=== PATIENT | male | born 1980 | race Caucasian/White ===

== ENCOUNTER 2021-11-16 19:49 | Emergency (ER) | payer SELFPAY ==
[2021-11-16 19:51] VITALS: BP 121/72; PULSE 63; RESP 16; TEMP 36.7; O2SAT 96; BMI 29.7
--- NOTE | 2021-11-16 19:56 | ED_ITS ---
HPI - Extremity Problem General: Chief complaint: Extremity Injury, Lower Stated complaint: Left Ankle Injury Time Seen by Provider: 11/16/21 19:56 History of Present Illness: 41-year-old male comes in for injury to the left ankle. Patient was stepping out of his truck when he turned his left ankle. Patient has swelling and tenderness to the lateral malleus of the left ankle. No tenderness is noted to the foot or to the knee. Patient denies any prior injury to the ankle. Associated symptoms: Deny chest pain, fever(s) or rash Review of Systems General: Reports: 10 or more systems reviewed and unremarkable except in HPI and below Const: Denies: fever(s) Card: Denies: chest pain Resp: Denies: dyspnea Musc: Reports: joint pain Skin/Breast: Denies: rash Physical Exam Const: COMMON NORMALS: alert HENMT: COMMON NORMALS: atraumatic HEAD & SCALP: atraumatic Neck/C-Spine: COMMON NORMALS: full ROM Resp: COMMON NORMALS: normal respiratory effort Cardio: COMMON NORMALS: regular rate RATE: regular rate Extremity: LEFT LOWER EXTREMITY: Yes ankle joint (lateral maleolus swelling and tenderness) Left ankle: Yes inspection, Yes palpation and Yes ROM Neuro: SENSORIUM/ORIENTATION: Yes alert Skin: COMMON NORMALS: no rashes or lesions noted GENERAL SKIN EXAM: no ra shes or lesions noted Course Vital Signs: Vital signs: Vital Signs Temperature 98.0 F 11/16/21 19:51 Pulse Rate 63 11/16/21 19:51 Respiratory Rate 16 11/16/21 19:51 Blood Pressure 121/72 11/16/21 19:51 Pulse Oximetry 96 11/16/21 19:51 MDM - Extremity (Nontraumatic) Medical Decision Making 41-year-old male patient comes in today with injury to the left ankle. On exam patient has some swelling and tenderness to the lateral malleus of the left ankle. Pulses and sensation are intact distally. No obvious deformity is noted. Differential diagnosis includes fracture, sprain, contusion. X-ray noted no fracture or dislocation. Reviewed exam with patient with recommendations for treatment and follow-up. Patient and family both reported understanding. Lab Data Radiology Impressions Ankle X-Ray 11/16/21 19:58 IMPRESSION: Negative for fracture or dislocation Discharge Plan Discharge Patient Disposition: Home Clinical Impression: Ankle sprain Qualifiers: Encounter type: initial encounter Involved ligament of ankle: unspecified ligament Laterality: left Qualified Code(s): S93.402A - Sprain of unspecified ligament of left ankle, initial encounter Condition: Stable Discharge Orders: Discharge ED (Routine); Ordered 11/16/21 Ordered By: Saroj Vann Discharge Diet: Usual diet Discharge Activity: Increase activity as tolerated Patient Instructions: Ankle Sprain (ED) Activity Restrictions/Additional Instructions: Home and rest. Elevate and ice ankle for pain and discomfort. Use elastic bandage for comfort and swelling. Use crutches until he can bear weight comfortably. Most individuals will use crutches for 2 to 3 days and then start to notice improvement in symptoms and are able to bear weight. Sometimes pain may persist up to 1 week until he can bear weight. Follow-up with primary care for persistent symptoms. Return to ER for new concerns. 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
--- NOTE | 2021-11-16 19:58 | XRR_ITS ---
PROCEDURE INFORMATION: Exam: XR Left Ankle Exam date and time: 11/16/2021 8:10 PM Age: 41 years old Clinical indication: Pain; Ankle; Left; Additional info: Injury TECHNIQUE: Imaging protocol: XR Left ankle. Views: 3 or more views. COMPARISON: No relevant prior studies available. 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 Small calcified heel spur. Soft tissues: See Bones/joints finding. XR/XR ankle LT min 3V* [id number] IMPRESSION: Negative for fracture or dislocation
== END 2021-11-16 20:55 | disposition home or self-care (01) ==
PROVIDERS: Emergency Provider Nurse Practitioner Family
DX: S93.402A Sprain of unspecified ligament of left ankle, initial encounter (principal); X58.XXXA Exposure to other specified factors, initial encounter
CPT/HCPCS: 73610; 99283; E0114

== ENCOUNTER 2022-11-14 12:03 | Emergency (ER) | payer SELFPAY ==
[2022-11-14 13:06] VITALS: BMI 29.0
[2022-11-14 13:09] VITALS: BP 120/82; PULSE 79; RESP 18; O2SAT 99
--- NOTE | 2022-11-14 14:48 | W.ED.GENADLT ---
HPI - General Adult General: Chief complaint: General Medical Stated complaint: tick bite Time Seen by Provider: 11/14/22 14:36 History of Present Illness: Patient presents to the ER with complaints of nausea headache diarrhea fever chills exhaustion multiple achy joints. This started approximately 2 days ago. Patient does report pulling multiple ticks off of him over the last few weeks. Patient is not currently on any medicines not allergic to any medicines and has had no big hospitalizations or surgeries. 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 complaint: Nausea headache diarrhea fever chills fatigue polyarthropathy Onset (ago): day(s) (2 days ago) Radiation: non-radiation Severity: mild Quality: aching Pain Consistency: constant Relieving factors: none Exacerbating factors: none Associated symptoms: Reports fevers/chills, headache(s), malaise and nausea; Deny chest pain, dyspnea, rash or palpitations Treatments prior to arrival: none Review of Systems General: Reports: 10 or more systems reviewed and unremarkable except in HPI and below Const: Reports: fever(s), chills and malaise Eyes: Denies: change in vision or photophobia ENMT: Denies: throat pain or odynophagia Card: Denies: chest pain or palpitations Resp: Denies: dyspnea or productive cough GI: Reports: nausea Musc: Reports: joint pain; Denies: neck pain or back pain Skin/Breast: Denies: rash or pruritus Neuro: Reports: headache(s); Denies: numbness in extremities or weakness in extremities Psych: Denies: anxiety or depression PFS ED PFSH: Medical History 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 Surgical History H/O knee surgery Family History Denies family history of Diabetes CAD (coronary artery disease) Clotting disorder Dementia Hyperlipidemia Psychiatric illness Chronic kidney disease (CKD) Suicide Anesthesia complication Bleeding disorder Family history of premature coronary artery disease Lung disease Cancer Hypertension Stroke Social History Smoking and tobacco status: current every day smoker Alcohol intake: never Substance/Drug Use: never Adopted: No Lives independently: Yes Marital status: Life Partner Highest education level completed: GED or Equivalent service: No Current occupational status: employed Physical Exam Const: COMMON NORMALS: no acute distress, average body habitus, patient oriented x3, no limitations, healthy appearing and alert HENMT: COMMON NORMALS: normocephalic, atraumatic, hearing grossly normal bilaterally, external ears normal, Normal external nose present and moist oral mucous membranes HEAD & SCALP: normocephalic and atraumatic NOSE: Normal external nose present EXTERNAL EAR: Yes external ears normal Eye: COMMON NORMALS: Equal, round and reactive pupils present, EOMs intact bilaterally, conjunctivae normal and no scleral icterus CONJUNCTIVA: Yes conjunctivae normal PUPIL: Yes Equal, round and reactive pupils present Neck/C-Spine: COMMON NORMALS: full ROM, no lymphadenopathy, supple, no meningeal signs, no JVD and Thyroid normal THYROID: Thyroid normal Lymph: LYMPHATIC: no lymphadenopathy noted Chest: COMMONS NORMALS: normal inspection of the chest and normal palpation of entire chest wall Resp: COMMON NORMALS: normal respiratory effort, No retractions, No use of accessory muscles and clear to auscultation bilaterally AUSCULTATION: clear to auscultation bilaterally Cardio: COMMON NORMALS: no JVD, regular rate, regular rhythm, S1 normal heart sound present, S2 normal heart sound present, No gallops present (Cardio), No clicks present (Cardio) and No murmurs present (Cardio) RATE: regular rate RHYTHM: regular rhythm HEART SOUNDS: S1 normal heart sound present and S2 normal heart sound present GI: COMMON NORMALS: Normal to inspection, nondistended, normoactive bowel sounds present, Soft to palpation, non-tender, No hepatosplenomegaly present and no masses PALPATION: Yes Soft to palpation and Yes No hepatosplenomegaly present : COMMON NORMALS: Yes no CVA tenderness BLADDER/KIDNEY EXAM: Yes no CVA tenderness Back/Pelvis: COMMON NORMALS: no CVA tenderness Neuro: COMMON NORMALS: patient oriented x3 SENSORIUM/ORIENTATION: Yes alert MENINGEAL SIGNS: Yes no meningeal signs Course Vital Signs: Vital signs: Vital Signs Pulse Rate 79 11/14/22 13:09 Respiratory Rate 18 11/14/22 13:09 Blood Pressure 120/82 11/14/22 13:09 Pulse Oximetry 99 11/14/22 13:09 Oxygen Delivery Me thod Room Air 11/14/22 13:09 MDM - General Adult Medical Decision Making Tickborne panel sent off Differential Diagnosis Tickborne illness, dehydration, heat exhaustion, gastroenteritis, viral illness Medical Records I reviewed the patient's medical records. Lab Data I reviewed the patient's lab results. 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
--- NOTE | 2022-11-14 14:50 | XRR_ITS ---
PROCEDURE INFORMATION: Exam: XR Chest Exam date and time: 11/14/2022 3:10 PM Age: 42 years old Clinical indication: Fever; Additional info: Fever chills TECHNIQUE: Imaging protocol: Radiologic exam of the chest. Views: 1 view. COMPARISON: No relevant prior studies available. FINDINGS: Lungs: Unremarkable. No consolidation. Pleural spaces: Unremarkable. No pleural effusion. No pneumothorax. Heart/Mediastinum: Unremarkable. No cardiomegaly. Bones/joints: Unremarkable. XR/XR chest 1V portable [id number] IMPRESSION: No acute findings.
[2022-11-14 15:11] LABS: Basophils % 0.8 %; Hematocrit 47.3 % (42.0-52.0); Hemoglobin 16.6 g/dL (11.7-16.6); Lymphocytes % 19.3 %; Mean Corpuscular HGB Conc 35.1 g/dL (30.0-36.0); Mean Corpuscular Hemoglobin 29.8 pg (28.0-34.0); Mean Corpuscular Volume 84.9 fl (80-94); Mean Platelet Volume 10.6 fL (7.4-10.4); Monocytes # 0.5 10^3/uL (0.2-0.9); Monocytes % 8.8 %; Neutrophils # 3.68 10^3/uL (1.8-7.7); Neutrophils % 70.5 %; Nucleated Red Blood Cells % 0 %; Platelet Count 143 10^3/cmm (130-400); Red Blood Count 5.57 10^6/uL (4.1-5.3); Red Cell Distribution Width 12.2 % (12.1-15.1); White Blood Count 5.2 10^3/uL (4.0-10.0)
[2022-11-14 15:36] LABS: Alanine Aminotransferase 20 U/L (0-41); Albumin Level 4.1 g/dL (3.5-5.2); Alkaline Phosphatase 61 U/L (40-130); Anion Gap 13.6 (5-19); Aspartate Amino Transferase 26 U/L (0-40); Blood Urea Nitrogen 9 mg/dL (6-20); C Reactive Protein 17.1 mg/L (0.0-4.9); Calcium 8.9 mg/dL (8.5-10.5); Carbon Dioxide 25 mmol/L (22-29); Chloride 99 mmol/L (98-107); Globulin 2.6 g/dL (1.3-4.6); Glomerular Filtration Rate 81.2 mL/min (90-130); Glucose 144 mg/dL (65-115); Osmolality Calculated 279 mOsm/kg (285-295); Potassium 3.6 mmol/L (3.5-5.1); Sodium 134 mmol/L (136-145); Total Bilirubin 0.3 mg/dL (0.15-1.2); Total Protein 6.7 g/dL (6.6-8.7)
[2022-11-14 16:38] LABS: Influenza A by IFA negative (Negative); Influenza B by IFA negative (Negative)
[2022-11-14 16:39] LABS: SARS Covid-2 Antigen negative (Negative)
--- NOTE | 2022-11-14 17:51 | PC.NURSE ---
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 pt was not up for dc. I discussed with that he could leave AMA if he came back in to sign form. pt came back in to sign AMA form.
[2022-11-15 12:50] LABS: Lyme AB Screen <0.90 index
[2022-11-21 17:10] LABS: RMSF IGG NOT DETECTED; RMSF IGM NOT DETECTED
[2022-11-21 21:49] LABS: E. Chaffeensis AB IGG <1:64; E. Chaffeensis AB IGM <1:20
--- NOTE | 2022-11-29 13:13 | DCPLANNER ---
TCM called patient due to no primary care physician - TCM spoke with patient who stated that he was trying to get established with Dr. Vargas, but denied wanting any help on getting established.
== END 2022-11-14 18:09 | disposition admitted as inpatient to this hospital (09) ==
PROVIDERS: Emergency Provider Emergency Medicine
DX: R51.9 Headache, unspecified (principal); R11.0 Nausea; R50.9 Fever, unspecified; F17.210 Nicotine dependence, cigarettes, uncomplicated; W57.XXXA Bitten or stung by nonvenomous insect and other nonvenomous arthropods, initial encounter
CPT/HCPCS: 36415; 71045; 80053; 83735; 85025; 86140; 86618; 86666; 86757; 87426; 87804; 99284